=== PATIENT | female | born 1975 | race American Indian/Alaskan Native ===

== ENCOUNTER 2017-08-26 12:39 | Day surgery (SDC) | payer OTHER ==
[2017-03-20 10:56] VITALS: BMI 23.3
[2017-08-26] MEDS ORDERED: Lactated Ringer's 1,000 ML IV ONE (13:40)
[2017-08-26] MEDS ORDERED: Propofol 10 mg/ml Inj (20 ML) ONE ×2 (13:44→13:55)
--- NOTE | 2017-08-26 13:50 | CP.SDSHP ---
Same Day Surgery H & P - History Proposed Procedure: Endoscopy Pre-Op Diagnosis: dysphagia - Previous Medical/Surgical History Pulmonary: Asthma Misc: Other (Anemia. Blanche Esophagitis) Previous Surgical History: laparoscopy - Allergies Allergies: Allergies shrimp Allergy (Intermediate, Verified 08/26/17 12:56) SWELLING "THROAT CLOSES", RASH - Current Medications Current Medications: reviewed, per reconciliation - Physical Exam General Appearance: wdwn nad Vital Signs: Vital Signs 08/26/17 13:07 Temperature 98.8 F Pulse Rate 97 H Respiratory 16 Rate Blood Pressure 116/63 O2 Sat by Pulse 99 Oximetry Mental Status: Alert & Oriented x3 Heart: WNL Lungs: WNL GI: WNL - {Optional Preform as Required} Abdomen: WNL - Impression Impression: dysphagia Pt. Evaluated Today:Candidate for Anesthesia & Procedure: Yes - Date & Time Date: 08/26/17 Time: 13:50 Short Stay Discharge - Short Stay Discharge Admitting Diagnosis/Reason for Visit: ESOPHAGEAL REFLUX Disposition: HOME/ ROUTINE
[2017-08-26 14:33] VITALS: PULSE 74; TEMP 98.3
[2017-08-26 15:19] VITALS: BP 107/80; RESP 19; O2SAT 99
== END 2017-08-26 15:16 | disposition home or self-care (01) ==
LOC: C.ENDO 12:39
PROVIDERS: ATTEND Internal Medicine Gastroenterology
DX: K21.9 Gastro-esophageal reflux disease without esophagitis (principal)
CPT/HCPCS: 43239; 84703; 88305; 88312; 88342; J2704; J7120

== ENCOUNTER 2018-12-22 09:03 | Day surgery (SDC) | payer OTHER ==
[2018-12-22 09:25] VITALS: BMI 25.4
[2018-12-22] MEDS ORDERED: Lactated Ringer's 500 ML IV ONE ×2 (10:46)
[2018-12-22] MEDS ORDERED: Propofol 10 mg/ml Inj (20 ML) ONE (10:56)
--- NOTE | 2018-12-22 10:57 | CP.SDSHP ---
Same Day Surgery H & P - History Proposed Procedure: EGD/Bx Pre-Op Diagnosis: Dysphagia - Previous Medical/Surgical History Pulmonary: Asthma Endocrine/Metabolic: Thyroid Disease Neuro: Other (anxiety) Misc: Anemia Previous Surgical History: endometriosis - Allergies Allergies: Allergies shrimp Allergy (Intermediate, Verified 08/26/17 12:56) SWELLING "THROAT CLOSES", RASH - Current Medications Current Medications: reviewed, per reconciliation - Physical Exam General Appearance: wdwn Vital Signs: Vital Signs 12/22/18 09:30 Temperature 96.8 F L Pulse Rate 68 Respiratory 18 Rate Blood Pressure 99/57 L Mental Status: Alert & Oriented x3 Heart: WNL Lungs: WNL GI: WNL Social History: Smoking - {Optional Preform as Required} Abdomen: WNL - Impression Impression: dysphagia Pt. Evaluated Today:Candidate for Anesthesia & Procedure: Yes - Date & Time Date: 12/22/18 Time: 10:56 Short Stay Discharge - Short Stay Discharge Admitting Diagnosis/Reason for Visit: GERD Disposition: HOME/ ROUTINE
[2018-12-22 12:24] VITALS: TEMP 97
[2018-12-22 12:27] VITALS: BP 106/70; PULSE 78; RESP 16; O2SAT 100
== END 2018-12-22 12:30 | disposition home or self-care (01) ==
LOC: C.ENDO 09:03
PROVIDERS: ATTEND Internal Medicine Gastroenterology
DX: R13.10 Dysphagia, unspecified (principal); F41.9 Anxiety disorder, unspecified; D64.9 Anemia, unspecified
CPT/HCPCS: 43239; 84703; 88305; 88312; 88313; 88342; J2001; J2704; J7120